=== PATIENT | female | born 1975 | race Caucasian/White ===

== ENCOUNTER 2024-07-01 14:30 | Outpatient (CLI) | payer OTHER | END 2024-07-01 14:31 | disposition home or self-care (01) | LOC: CSHRAD 14:30 | PROVIDERS: ATTEND Nurse Practitioner Family | DX: Z76.89 Persons encountering health services in other specified circumstances (principal); M47.816 Spondylosis without myelopathy or radiculopathy, lumbar region | CPT/HCPCS: 72072; 72100 ==